=== PATIENT | female | born 1960 | race Two or more races ===

== ENCOUNTER 2020-05-23 10:07 | Outpatient (CLI) | payer OTHER | END 2020-05-23 10:28 | disposition home or self-care (01) | LOC: SONOGRAMA 10:07 | PROVIDERS: ATTEND Pathology Anatomic Pathology | DX: E04.2 Nontoxic multinodular goiter (principal) ==

== ENCOUNTER 2022-06-23 10:43 | Outpatient (CLI) | payer OTHER | END 2022-06-23 10:46 | disposition home or self-care (01) | LOC: LAB 10:43 | DX: Z20.828 Contact with and (suspected) exposure to other viral communicable diseases (principal); Z20.818 Contact with and (suspected) exposure to other bacterial communicable diseases ==